=== PATIENT | female | born 1990 | race Two or more races ===

== ENCOUNTER 2023-08-06 11:02 | Emergency (ER) | payer BC, OTHER ==
[2023-08-06 11:14] VITALS: BP 118/72; PULSE 87; RESP 18; TEMP 98.4; BMI 23.8
== END 2023-08-06 12:33 | disposition home or self-care (01) ==
LOC: JER 11:02
DX: O03.9 Complete or unspecified spontaneous abortion without complication (principal)
CPT/HCPCS: 99282-25

== ENCOUNTER 2024-07-25 18:10 | Inpatient (IN) | payer OTHER ==
[2024-07-25 19:04] VITALS: BMI 31.6
[2024-07-25] MEDS ORDERED: BUTORPHANOL TARTRATE 2 MG/ML VIAL IVPB PRN (19:38)
[2024-07-25 19:56] LABS: ABSOLUTE IMMATURE GRANULOCYTES 0.11 x10^3/uL (0.0-0.031); BASOPHILS # 0.03 x10^3/uL (0.01-0.08); EOSINOPHIL % 0.5 % (0.7-5.8); EOSINOPHILS # 0.05 x10^3/uL (0.04-0.36); HEMATOCRIT 38.4 % (34.1-44.9); HEMOGLOBIN 12.5 g/dL (11.2-15.7); MCHC 32.6 g/dl (32.2-35.5); MEAN PLT VOLUME 10.8 fl (9.4-12.3); MONOCYTE # 0.58 x10^3/uL (0.24-0.86); MONOCYTE % 5.8 % (4.7-12.5); PLATELET COUNT 266 x10^3/uL (182-369)
[2024-07-25 20:06] LABS: POTASSIUM 4.3 mmol/L (3.5-5.1)
[2024-07-25 20:08] LABS: BLOOD UREA NITROGEN 13.4 mg/dL (7-18); CALCIUM 9.8 mg/dL (8.5-10.1); INR 0.89 (0.83-1.09); PROTHROMBIN TIME (PATIENT) 9.8 SEC (9.7-13.0)
[2024-07-25 20:11] LABS: ACTIVATED PTT 26.6 SECONDS (25.2-36.5); CREATININE 0.8 mg/dL (0.55-1.3)
[2024-07-25 21:02] LABS: HIV INTERPRETATION NEGATIVE (NEGATIVE)
[2024-07-25] MEDS: LACTATED RINGERS SOLUTION 1,000 ML IV SCH (23:50)
[2024-07-26] MEDS: MISOPROSTOL 25 MCG TABLET (COMPOUNDED BY PHARMACY) BUC ONE ×3 (10:25→20:15)
[2024-07-27] MEDS: OXYTOCIN 30 UNITS in 0.9% NS 30 UNIT/500 ML INFUS.BAG IVPB SCH (00:15)
[2024-07-27] MEDS ORDERED: PROMETHAZINE HCL 25 MG/1 ML VIAL ONE (12:52)
[2024-07-27] MEDS ORDERED: BUTORPHANOL TARTRATE 1 MG/ML VIAL ONE (12:52)
[2024-07-27] MEDS: BUTORPHANOL TARTRATE 1 MG/ML VIAL IVPB ONE (12:58)
[2024-07-27] MEDS: PROMETHAZINE HCL 25 MG/1 ML VIAL IVPB PRN (12:58)
[2024-07-27] MEDS: CITRIC ACID/SODIUM CITRATE 30 ML UNIT-DOSE CUP PO ONE (18:52)
[2024-07-27] MEDS ORDERED: morphine SULFATE/PF 1 MG/2 ML (2cc Syringe - QUVA) ONE (19:26)
[2024-07-27] MEDS ORDERED: FENTANYL CITRATE/PF 50 MCG/ML VIAL ONE (19:26)
[2024-07-27] MEDS ORDERED: ONDANSETRON 4 MG/2 ML VIAL ONE (19:26)
[2024-07-27] MEDS ORDERED: KETOROLAC TROMETHAMINE 30 MG/1 ML VIAL ONE (19:26)
[2024-07-27] MEDS ORDERED: OXYTOCIN 10 UNITS/ML VIAL ONE (19:26)
[2024-07-27] MEDS ORDERED: PHENYLEPHRINE HCL 10 MG/1 ML SINGLE DOSE VIAL ONE (19:26)
[2024-07-27] MEDS ORDERED: ONDANSETRON 4 MG/2 ML VIAL IVPB PRN (21:40)
[2024-07-27] MEDS: OXYTOCIN 20 UNITS in 0.9% NS 20 UNIT/1,000 ML INFUS.BAG IV SCH (21:50)
[2024-07-27] MEDS ORDERED: oxyCODONE HCL 5 MG TABLET PO PRN (21:51)
[2024-07-27] MEDS ORDERED: OXYTOCIN 20 UNITS in 0.9% NS 20 UNIT/1,000 ML INFUS.BAG IV ONE (23:00)
[2024-07-27] MEDS: IBUPROFEN (CALDOLOR) 800 MG/200 ML PREMIX BAGS IVPB SCH (23:04)
[2024-07-28] MEDS: ACETAMINOPHEN 1000 MG/100 ML BAG IVPB SCH (01:39)
[2024-07-28] MEDS: SENNOSIDES/DOCUSATE COMBO (SENNA PLUS) TABLET (UD) PO SCH (01:40)
[2024-07-28 08:31] LABS: ABSOLUTE IMMATURE GRANULOCYTES 0.04 x10^3/uL (0.0-0.031); BASOPHILS # 0.02 x10^3/uL (0.01-0.08); EOSINOPHIL % 0.2 % (0.7-5.8); EOSINOPHILS # 0.02 x10^3/uL (0.04-0.36); HEMATOCRIT 28.2 % (34.1-44.9); HEMOGLOBIN 9.1 g/dL (11.2-15.7); MCHC 32.3 g/dl (32.2-35.5); MEAN CELL VOLUME 85.5 fl (79.4-94.8); MEAN PLT VOLUME 10.8 fl (9.4-12.3); MONOCYTE # 0.49 x10^3/uL (0.24-0.86); PLATELET COUNT 183 x10^3/uL (182-369); RDW 15.1 % (12.1-16.8)
[2024-07-28] MEDS: ENOXAPARIN NA (PORCINE) 40 MG/0.4 ML DISP.SYRIN SQ SCH (10:00)
[2024-07-28] MEDS: DIPHTH,PERTUSS(ACELL),TET 0.5 ML DISP.SYRIN IM ONE (10:01)
[2024-07-28] MEDS: DOCUSATE SODIUM 100 MG CAPSULE (FP) PO SCH (10:04)
[2024-07-28 10:21] VITALS: RESP 18
[2024-07-28] MEDS: IRON SUCROSE INJECTION 200 MG in SODIUM CHLORIDE 100 ML IVPB ONE (14:38)
[2024-07-28] MEDS: IBUPROFEN 600 MG TABLET (FP) PO PRN (15:15)
[2024-07-28] MEDS: oxyCODONE HCL 5 MG TABLET PO PRN (21:21)
[2024-07-28] MEDS ORDERED: BISACODYL 10 MG SUPP.RECT RC PRN (21:40)
[2024-07-29] MEDS: SIMETHICONE 80 MG TAB.CHEW (FP) PO PRN (03:34)
[2024-07-29 09:50] VITALS: TEMP 98.1
[2024-07-29] MEDS: ACETAMINOPHEN 325 MG TABLET (FP) PO PRN (11:44)
[2024-07-30 09:08] VITALS: BP 130/90; PULSE 90
[2024-07-30] MEDS: ACETAMINOPHEN 500 MG TABLET (FP) PO PRN (11:37)
== END 2024-07-30 11:45 | disposition home or self-care (01) | DRG 788 ==
LOC: JLDR 18:10 → J3W 07-28 00:29
PROVIDERS: ADMIT Specialist; ATTEND Specialist
PROC: 10D00Z1 Extraction of Products of Conception, Low, Open Approach (ICD-10-PCS; principal; 2024-07-27)
DX: O61.0 Failed medical induction of labor (principal); O34.13 Maternal care for benign tumor of corpus uteri, third trimester; D25.9 Leiomyoma of uterus, unspecified; Z3A.40 40 weeks gestation of pregnancy; Z37.0 Single live birth
CPT/HCPCS: 36415; 80048; 85025; 85610; 85730; 86780; 86850; 86900; 86901; 86922; 87389; 88307-TC; 90715; J1756